=== PATIENT | female | born 1985 ===

== ENCOUNTER → 2020-03-23 | Outpatient (REF) | payer OTHER | LOC: M LAB REF 09:30 | PROVIDERS: ATTEND Dermatology | DX: D23.30 Other benign neoplasm of skin of unspecified part of face (principal) ==

== ENCOUNTER → 2022-01-19 | Outpatient (REF) | payer BC | LOC: M LAB REF 16:28 | PROVIDERS: ATTEND Physician Assistant | DX: N39.0 Urinary tract infection, site not specified (principal) ==